=== PATIENT | female | born 1995 | race Caucasian/White ===

== ENCOUNTER 2017-01-27 11:26 | Emergency (ER) | payer OTHER ==
[~2017-01-27] VITALS: Ht 162.6 cm; Wt 81.6 kg
[2017-01-27 11:39] VITALS: Ht 162.6 cm; Wt 81.6 kg
[2017-01-27 15:31] VITALS: BP 120/69
== END 2017-01-27 15:31 | disposition home or self-care (01) ==
LOC: ED 11:26
DX: A54.9 Gonococcal infection, unspecified (principal)
CPT/HCPCS: J0696

== ENCOUNTER 2017-02-11 18:01 | Emergency (ER) | payer OTHER ==
[~2017-02-11] VITALS: Ht 157.5 cm; Wt 81.7 kg
[2017-02-11 18:14] VITALS: Ht 157.5 cm; Wt 81.7 kg
[2017-02-11 22:57] VITALS: BP 135/65
== END 2017-02-11 22:57 | disposition home or self-care (01) ==
LOC: ED 18:01
DX: J20.9 Acute bronchitis, unspecified (principal); J32.9 Chronic sinusitis, unspecified; H92.03 Otalgia, bilateral; J44.9 Chronic obstructive pulmonary disease, unspecified; Z79.52 Long term (current) use of systemic steroids
CPT/HCPCS: J7620

== ENCOUNTER 2017-06-19 11:11 | Emergency (ER) | payer OTHER ==
[~2017-06-19] VITALS: Ht 157.5 cm; Wt 85.7 kg
[2017-06-19 11:15] VITALS: BP 107/42; Ht 157.5 cm; Wt 85.7 kg
== END 2017-06-19 12:54 | disposition home or self-care (01) ==
LOC: ED 11:11
DX: S86.911A Strain of unspecified muscle(s) and tendon(s) at lower leg level, right leg, initial encounter (principal); X58.XXXA Exposure to other specified factors, initial encounter; Y93.89 Activity, other specified; Y92.89 Other specified places as the place of occurrence of the external cause; Y99.8 Other external cause status